=== PATIENT | male | born 1975 | race Caucasian/White ===

== ENCOUNTER → 2017-05-16 | Outpatient (CLI) | payer BC, OTHER ==
[~2017-05-16] MED LIST: ADVIL MULTI-SY1 EAC1 PO; GABAPENTIN 100100 MG PO; IBUPROFEN 800800 MG PO; MULTIVITAMINS PO; NORCO 5-325 TA1 EACH; NORCO 5-325 TA1 EACH PO; NORFLEX100 MG PO; NUCYNTA50 MG PO; ULTRAM ER200 MG PO; ZYRTEC10 M2 PO
== END ==
LOC: ULTRA 08:26
DX: E05.90 Thyrotoxicosis, unspecified without thyrotoxic crisis or storm (principal)

== ENCOUNTER → 2020-10-03 | Outpatient (CLI) | payer BC, OTHER ==
[~2020-10-03] MED LIST changes: +LEVOFLOXACIN500 MG PO; +levaquin PO
== END ==
LOC: RAD 11:31
PROVIDERS: ATTEND Internal Medicine Pulmonary Disease
DX: R91.8 Other nonspecific abnormal finding of lung field (principal); J98.4 Other disorders of lung

== ENCOUNTER → 2020-10-06 | Outpatient (CLI) | payer BC, OTHER | LOC: LAB 14:06 | PROVIDERS: ATTEND Internal Medicine Pulmonary Disease | DX: Z01.812 Encounter for preprocedural laboratory examination (principal); Z20.822 Contact with and (suspected) exposure to COVID-19 ==

== ENCOUNTER → 2020-10-09 | Outpatient (CLI) | payer BC, OTHER ==
--- NOTE | ~2020-10-09 | SLE ---
[facility] [place] [address] POLYSOMNOGRAPHY STUDY Name: STEFANY TEJADA Room #: REG [facility]#: [id number] Admission: 10/09/20 Attend Phys: Sharath Senior MD Discharge: Date of : 77 Report #: [id number] THIS REPORT FOR: cc: Ha Johnson MD FACE Ha Johnson MD FAA FACEP Segundo Turk MD ~ DATE OF SERVICE: 10/09/2020 SLEEP STUDY ATTENDING PHYSICIAN: Dr. Sharath Senior. The patient is a 44-year-old who weighs 217 pounds with a BMI of 32. The patient's [place] score was 8. The patient underwent split night study performed at [facility]. During the night study, the patient spent 463 minutes in bed and slept for 411 minutes with a sleep efficiency of 89%. Sleep latency was 4.3 minutes with a REM latency of 63 minutes. Sleep architecture showed increased stage 1 and stage 2 sleep, absent slow wave sleep and normal REM sleep. During the initial diagnostic portion of the study, the patient slept for 182 minutes. During that time, the patient had 9 obstructive apneas, no mixed apneas, no central apneas and 229 hypopneas. The patient's AHI was 78.5 per hour with a REM AHI of 65 per hour and no supine sleep was observed. EKG monitoring revealed an average heart rate of 92 beats per minute with a maximum of 107 beats per minute. No sustained arrhythmias observed. No clinically significant PLM seen. Nocturnal oximetry study revealed an average oxygen saturation of 92% with the lowest of 78%. 39 minutes were spent with oxygen saturation of less than 89%. The patient met the criteria for CPAP initiation. It was started at 5 cm water and titrated up to 15 cm water. At the final pressure, the patient slept for 120 minutes including 40 minutes of REM sleep. The patient had supine REM sleep. The patient's AHI was still 43 per hour. The patient had 50 obstructive apneas at the final pressure and 32 hypopneas. The patient's oxygen saturation remained above 90%. Optimum CPAP pressure was not achieved. IMPRESSION: 1. Severe obstructive sleep apnea at an AHI of 78.5 per hour. 2. Nocturnal hypoxia secondary to obstructive sleep apnea, but resolved with CPAP. [facility] [address] [place] [address] POLYSOMNOGRAPHY STUDY Name: STEFANY TEJADA Room #: REG [facility]#: [id number] Admission: 10/09/20 Attend Phys: Sharath Senior MD Discharge: Date of : 77 Report #: [id number] 3. No clinically significant periodic limb movements. RECOMMENDATIONS: 1. Optimum CPAP pressure was not achieved on this split night study. At the final CPAP pressure of 18 cm water, the patient's AHI was still 43 per hour. I would recommend that the patient should return to the sleep lab for a full night CPAP/BiPAP titration study starting at a CPAP pressure of 16 cm water. The patient would likely benefit from BiPAP. 2. Once the patient's sleep apnea is effectively treated with positive pressure therapy, then follow up in 4-6 weeks to assess compliance and to document clinical improvement. 3. Weight loss is advised. 4. 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 5. Cautioned regarding driving until symptoms of sleep apnea resolves with the above recommendations. By: [id number] Segundo Turk MD /nt
== END ==
LOC: SLEEPLAB 14:35
PROVIDERS: ATTEND Internal Medicine Pulmonary Disease
DX: G47.33 Obstructive sleep apnea (adult) (pediatric) (principal); R09.02 Hypoxemia

== ENCOUNTER → 2020-10-17 | Outpatient (CLI) | payer BC, OTHER | LOC: RAD 12:47 | PROVIDERS: ATTEND Internal Medicine Pulmonary Disease | DX: R91.8 Other nonspecific abnormal finding of lung field (principal) ==

== ENCOUNTER → 2020-10-20 | Outpatient (CLI) | payer BC, OTHER ==
[~2020-10-20] MED LIST changes: +BENZONATATE200 MG PO; +BUTALB-APAP-CA1 EACH PO; +ESCITALOPRAM OX20 MG PO; +PREGABALIN100 MG PO; +TRAMADOL 50 MG50 MG PO
== END ==
LOC: LAB 10-18 08:14
PROVIDERS: ATTEND Internal Medicine Pulmonary Disease
DX: Z20.822 Contact with and (suspected) exposure to COVID-19 (principal); Z01.812 Encounter for preprocedural laboratory examination

== ENCOUNTER 2020-10-22 18:31 | Inpatient (IN) | payer BC, OTHER ==
[~2020-10-22] VITALS: Ht 175.3 cm; Wt 106.2 kg
--- NOTE | ~2020-10-22 | H ---
[facility] [place] [address] HISTORY AND PHYSICAL Name: STEFANY TEJADA Room #: 212-P ADM IN M.R.#: [id number] Admission: 10/22/20 Attend Phys: Ha Johnson MD, FAAF Discharge: Date of : 77 Report #: [id number] THIS REPORT FOR: cc: Ha Johnson MD FAAFP FACEP Ha Johnson MD FAAFP FACEP Ha Johnson MD FAA FACEP ~ DATE OF SERVICE: 10/23/2020 CHIEF COMPLAINT: Pneumonia; shortness of breath. HISTORY OF PRESENT ILLNESS: The patient is a 44-year-old white male, well known to me. He was hospitalized with community-acquired pneumonia in September, stayed in the hospital most of the week. He did improve his oxygen saturations and improved well enough to go home, but did continue to have bouts of some shortness of breath with cough including productive cough. Interval chest x-ray showed some persistent infiltrates and he did continue ____ Levaquin in the interval since discharge from hospital. Over the weekend, however, his oxygen saturations dropped into the 80s and he developed worsening shortness of breath with frequent cough. He was evaluated in the Emergency Department at [facility] and was found to have bilateral pneumonias, who was admitted for broad-spectrum antibiotics. He is also noted to be hypoxic with oxygen saturation of 87, improved with oxygen per nasal cannula. PAST MEDICAL HISTORY: Kidney stones, chronic left leg pain after left hip replacement, appendectomy, cholecystectomy, herniorrhaphy. He has chronic back pain, sciatica, dumping syndrome. MEDICATIONS: Gabapentin 100 mg 1 p.o. daily, escitalopram 20 mg p.o. daily, Lyrica 100 mg p.o. b.i.d., [place] 10/325 one p.o. q.6 hours p.r.n. pain, Ultram 50 mg p.o. q.6 hours p.r.n. pain and butalbital/caffeine/acetaminophen 1 p.o. q.6 hours p.r.n. migraine. ALLERGIES: No known drug allergies. SOCIAL HISTORY: He is single, works for [employer] and [employer] and nonsmoker. Denies recreational drug use. FAMILY HISTORY: Positive for diabetes in his mother. REVIEW OF SYSTEMS: GENERAL: He has had fever and chills. No nausea, vomiting or diarrhea. EYES: No visual changes. ENT: No problems with hearing, swallow, taste or smell. CARDIOVASCULAR: No chest pain or palpitations. RESPIRATORY: He has cough and shortness of breath. [address] [address] HISTORY AND PHYSICAL Name: STEFANY TEJADA Room #: 212-P [facility] IN M.R.#: [id number] Admission: 10/22/20 Attend Phys: Ha Johnson MD, FAAF Discharge: Date of : 77 Report #: [id number] GASTROINTESTINAL: No abdominal pain. GENITOURINARY: No problems urinating. MUSCULOSKELETAL: He has chronic left leg pain and chronic back pain. NEUROLOGIC: No paresis, paralysis, or paresthesias. PSYCHIATRIC: Frustrated, not depressed. DERMATOLOGIC: No disturbing lesions or rash. Remainder of system review is negative. OBJECTIVE: VITAL SIGNS: He is febrile with a temperature of 38.5, pulse 102, respirations 20, pulse ox on room air was 87%, into the 90s with 3 liters nasal cannula oxygen, blood pressure 123/85. He is in no acute distress. Has O2 per nasal cannula. HEENT: Pupils equal, round, reactive to light and accommodation. Extraocular muscles intact, slightly exophthalmic bilaterally. Pharynx unremarkable except for mild posterior pharyngeal wall erythema. NECK: Supple. COR: S1, S2. CHEST: Scattered coarse breath sounds with fairly good air movement. ABDOMEN: Soft, nontender. EXTREMITIES: No cyanosis, clubbing or edema. NEUROLOGIC: Intact without focal deficit. X-ray show bilateral pneumonias. COVID test was negative on the day of admission. ASSESSMENT: Community-acquired pneumonia, hypoxia. PLAN: Admit to hospital. Supplemental oxygen, broad-spectrum antibiotics and ID consult to Dr. Scherer and Pulmonary Medicine consult to Dr. Sharath Senior. By: [phone] Ha Johnson MD, FAAFP, FACEP /nt
[~2020-10-22 18:31] MED LIST changes: -BENZONATATE200 MG PO; -BUTALB-APAP-CA1 EACH PO; -ESCITALOPRAM OX20 MG PO; -PREGABALIN100 MG PO; -TRAMADOL 50 MG50 MG PO
[2020-10-22 18:36] VITALS: BP 127/75
[2020-10-22] MEDS ORDERED: BENZONATATE200 MG PO (19:20)
[2020-10-22] MEDS ORDERED: TRAMADOL 50 MG50 MG PO (19:20)
[2020-10-22] MEDS ORDERED: BUTALB-APAP-CA1 EACH PO (19:21)
[2020-10-22] MEDS ORDERED: ESCITALOPRAM OX20 MG PO (19:21)
[2020-10-22] MEDS ORDERED: PREGABALIN100 MG PO (19:21)
[2020-10-22 20:05] LABS: ABSOLUTE NEUTROPHILS 9.4 thou/uL (1.4-8.2); BASOPHILS 0.7 % (0.0-2.0); EOSINOPHILS 0.9 % (0.0-3.0); HEMOGLOBIN 10.1 gm/dL (14.0-18.0); LYMPHOCYTES 7.8 % (24.0-44.0); MCH 23.8 pg (26.0-34.0); MCHC 31.7 g/dL (28.0-37.0); MCV 75.1 fL (80.0-100.0); MONOCYTES 11.8 % (1.0-8.0); PLATELET COUNT 257 thou/uL (150-400); POLYS 78.8 % (36.0-66.0); RBC 4.26 mil/uL (4.50-6.00); RDW 15.7 % (10.5-14.5); WBC 11.9 thou/uL (4.0-11.0)
[2020-10-22 20:08] LABS: BE(vivo) 1.4 mmol/L (-2 to +3); HCO3 25.9 mmol/L (22.0-26.0); PCO2 40.8 mmHg (35.0-45.0); PO2 71.1 mmHg (80.0-100.0); pH 7.421 (7.360-7.450); sO2 94.6 % (92.0-98.0)
[2020-10-22 20:08] LABS: ANION GAP 8 mmol/L (7-16); BUN 17 mg/dL (7-18); CALCIUM 8.9 mg/dL (8.5-10.1); CHLORIDE 101 mmol/L (98-107); CO2 29 mmol/L (21-32); GLUCOSE 140 mg/dL (74-106); POTASSIUM 3.9 mmol/L (3.5-5.1); SODIUM 138 mmol/L (136-145)
[2020-10-22 20:19] LABS: ALBUMIN 3.3 g/dL (3.4-5.0); SGOT 28 U/L (15-37); SGPT 49 U/L (16-63); TOTAL BILIRUBIN 0.8 mg/dL (0.2-1.0); TOTAL PROTEIN 7.8 g/dL (6.4-8.2); TROPONIN-I <0.06 ng/mL (<0.06)
--- NOTE | 2020-10-23 07:25 | EKG ---
[address] [address] ELECTROCARDIOGRAM REPORT Name: STEFANY TEJADA Room #: 170-6 ADM IN M.R.#: [id number] Admission: 10/22/20 Attend Phys: Ha Johnson MD, FAAF Discharge: Date of : 77 Report #: [id number] [facility] Test Date: 2020-10-22 Test Time: 19:11:42 Pat Name: STEFANY TEJADA Department: Room: 170 Gender: M Pelt Dropper: nicolas : 1975 Requested By: Silas Ann Order Number: [id number] MD: Sotero Mac Measurements Intervals [place] Rate: 125 P: 38 [place]: 161 QRS: -56 QRSD: 92 T: 5 QT: 310 QTc: 447 Interpretive Statements Sinus tachycardia Probable left atrial enlargement Left anterior fascicular block Compared to ECG 09/23/2020 17:41:33 Left anterior fascicular block now present Left-axis deviation no longer present ST (T wave) deviation no longer present Electronically Signed On 10-23-2020 7:25:21 CDT by Sotero Mac [email or web address] <ELECTRONICALLY SIGNED> By: Sotero Mac MD, FACC 10/23/20 0725 10 10 Sotero Mac MD, [facility] /EPI
[2020-10-23 14:17] VITALS: BP 138/83
[2020-10-23 15:09] VITALS: BP 125/78
[2020-10-23 15:30] VITALS: BP 125/74
[2020-10-23 18:30] LABS: INR 1.1; PROTIME 11.7 Seconds (9.3-11.4)
[2020-10-23 21:30] VITALS: BP 132/79
[2020-10-24] VITALS: BP 127/77
[2020-10-24 00:19] LABS: AMP/METHAMP Negative (Negative); BARBITURATES Negative (Negative); BENZODIAZEPINES Negative (Negative); COCAINE Negative (Negative); METHADONE Negative (Negative); OPIATES POSITIVE (Negative); PCP Negative (Negative)
[2020-10-24 01:06] LABS: COMPLEMENT-C3 194 mg/dL (82-167); COMPLEMENT-C4 22 mg/dL (12-38)
[2020-10-24 05:00] VITALS: BP 153/87
[2020-10-24 08:00] VITALS: BP 136/85
[2020-10-24 08:27] LABS: HEMATOCRIT 35.4 % (42.0-52.0); HEMOGLOBIN 11.3 gm/dL (14.0-18.0); MCH 23.8 pg (26.0-34.0); MCHC 31.9 g/dL (28.0-37.0); MCV 74.6 fL (80.0-100.0); RBC 4.75 mil/uL (4.50-6.00); RDW 15.9 % (10.5-14.5); WBC 5.3 thou/uL (4.0-11.0)
[2020-10-24 08:34] LABS: CALCIUM 9.4 mg/dL (8.5-10.1); CREATININE 0.8 mg/dL (0.7-1.3); POTASSIUM 3.5 mmol/L (3.5-5.1)
[2020-10-24 11:09] LABS: CLARITY CLOUDY; COLOR PINK; SOURCE BAL; TOTAL VOLUME 16 mL
[2020-10-24 12:36] LABS: BF NUCLEATED CELLS 1800 /mm3; BF RBC 10043 /mm3
[2020-10-24 14:41] LABS: BF MACROPHAGE 38 %; BF NEUTROPHILS 58 %
[2020-10-24 16:00] VITALS: BP 138/73
[2020-10-24 19:31] VITALS: BP 127/87
[2020-10-25 03:19] VITALS: BP 138/89
[2020-10-25 05:29] LABS: CALCIUM 8.3 mg/dL (8.5-10.1); CREATININE 0.9 mg/dL (0.7-1.3); POTASSIUM 3.8 mmol/L (3.5-5.1)
[2020-10-25 08:00] VITALS: BP 135/90
[2020-10-25 10:07] LABS: ANTI-DNA SCREEN 3 IU/mL (0-9); ANTI-RNP <0.2 AI (0.0-0.9); GLOMERULR BASEM MEMBRN AB 33 units (0-20)
[2020-10-25 11:45] VITALS: BP 133/74
--- NOTE | 2020-10-25 16:06 | PATH ---
[facility] [address] [place] [address] PATHOLOGY RPT PROCEDURE Name: STEFANY TEJADA Room #: 212-P ADM IN M.R.#: [id number] Admission: 10/22/20 Date of : 77 Discharge: Report #: [id number] Path Case #: [id number] Note [facility] Accession Number: [id number] TESTS RESULT FLAG UNITS REF RANGE LAB Clinician Provided Cytology Information No. of containers..01 Other (Miscellaneous) Source: BAL/WASH RUL DIAGNOSIS: 02 BAL/WASH RUL NEGATIVE FOR MALIGNANT EPITHELIAL CELLS. REACTIVE BRONCHIAL CELLS AND MACROPHAGES ARE PRESENT. PULMONARY MACROPHAGES (DUST CELLS) ARE PRESENT. Pathologist ICD10: 02 R06.02 Signed out by: 02 Giselle Morales MD, Pathologist NPI- [id number] Performed by: 01 Heather Arnold, Drill Setup Operator ([facility]) Gross description: 01 5ML, PINK, 1 TP /LCS 10/24/2020 1351 Local FLAG LEGEND: L-Low Normal,H-High Normal,LL-Alert Low,HH-Alert High <-Panic Low,>-Panic High,A-Abnormal,AA-Critical Abnormal Performed at: [address] [place] [address] Abhay Nelson MD, [address] [address] Giselle Morales MD, Performed at: [address], [place], [place] [id number] MD Abhay Nelson MD Phone: [phone]
[2020-10-25 17:00] VITALS: BP 129/94
[2020-10-25 19:47] VITALS: BP 150/94
[2020-10-26 04:03] VITALS: BP 149/99
[2020-10-26 07:35] VITALS: BP 145/80
[2020-10-26 10:00] VITALS: BP 145/80
[2020-10-26 11:30] VITALS: BP 145/84
[2020-10-26 15:45] VITALS: BP 151/83
[2020-10-26 19:42] LABS: AMP/METHAMP Negative (Negative); BARBITURATES Negative (Negative); BENZODIAZEPINES Negative (Negative); COCAINE Negative (Negative); METHADONE Negative (Negative); OPIATES POSITIVE (Negative); PCP Negative (Negative)
[2020-10-26 20:45] VITALS: BP 151/90
[2020-10-27 04:45] VITALS: BP 173/104
[2020-10-27 04:49] VITALS: BP 136/82
[2020-10-27 07:35] VITALS: BP 143/89
[2020-10-27 11:20] VITALS: BP 136/95
[2020-10-27 15:47] VITALS: BP 136/95
== END 2020-10-27 16:03 | disposition home or self-care (01) | DRG 871 ==
LOC: ER 18:31 → EROBS 21:25 → 2N 21:25
PROVIDERS: Internal Medicine Pulmonary Disease; Physician Assistant; ADMIT Family Medicine; ATTEND Family Medicine
PROC: 5A09357 Assistance with Respiratory Ventilation, Less than 24 Consecutive Hours, Continuous Positive Airway Pressure (ICD-10-PCS; principal; 2020-10-23)
PROC: 0B9C8ZX Drainage of Right Upper Lung Lobe, Via Natural or Artificial Opening Endoscopic, Diagnostic (ICD-10-PCS; 2020-10-24)
PROC: 5A09357 Assistance with Respiratory Ventilation, Less than 24 Consecutive Hours, Continuous Positive Airway Pressure (ICD-10-PCS; 2020-10-24)
PROC: 5A09357 Assistance with Respiratory Ventilation, Less than 24 Consecutive Hours, Continuous Positive Airway Pressure (ICD-10-PCS; 2020-10-25)
DX: A41.9 Sepsis, unspecified organism (principal); J96.01 Acute respiratory failure with hypoxia; J18.1 Lobar pneumonia, unspecified organism; R04.2 Hemoptysis; D80.3 Selective deficiency of immunoglobulin G [IgG] subclasses; R65.20 Severe sepsis without septic shock; K21.9 Gastro-esophageal reflux disease without esophagitis; F41.9 Anxiety disorder, unspecified; G89.29 Other chronic pain; M54.9 Dorsalgia, unspecified; J39.8 Other specified diseases of upper respiratory tract; G47.33 Obstructive sleep apnea (adult) (pediatric); I10 Essential (primary) hypertension; R91.8 Other nonspecific abnormal finding of lung field; Z96.642 Presence of left artificial hip joint; Z88.5 Allergy status to narcotic agent; Z87.442 Personal history of urinary calculi; Z90.49 Acquired absence of other specified parts of digestive tract; Z20.822 Contact with and (suspected) exposure to COVID-19
CPT/HCPCS: 10081; 50010; 62110; 62900; 70005

== ENCOUNTER → 2020-11-13 | Outpatient (CLI) | payer BC, OTHER ==
[~2020-11-13] MED LIST changes: +BENZONATATE200 MG PO; +BUTALB-APAP-CA1 EACH PO; +ESCITALOPRAM OX20 MG PO; +PREGABALIN100 MG PO; +TRAMADOL 50 MG50 MG PO
== END ==
LOC: RAD 08:20
PROVIDERS: ATTEND Internal Medicine
DX: R06.00 Dyspnea, unspecified (principal)

== ENCOUNTER → 2020-11-13 | Outpatient (CLI) | payer BC, OTHER ==
--- NOTE | 2020-11-16 14:17 | SLE ---
[facility] [place] [address] POLYSOMNOGRAPHY STUDY Name: STEFANY TEJADA Room #: REG [facility]#: [id number] Admission: 11/13/20 Attend Phys: Segundo Turk MD Discharge: Date of : 77 Report #: [id number] THIS REPORT FOR: cc: Ha Johnson MD, FAAFP FACEP Ha Johnson MD, FAAFP, FACEP, Aman U. MD ~ DATE OF SERVICE: 11/13/2020 SLEEP STUDY ATTENDING PHYSICIAN: Dr. Sharath Senior. The patient is 44 years old who weighs 220 pounds with a BMI of 32.5. The patient had a previous sleep study and was found to have severe ARISTIDES with an AHI of 78.5 per hour. The patient also had nocturnal hypoxia. Optimum CPAP pressure was not achieved on the split night study. The patient was recommended to return for a full night of CPAP/BiPAP titration study. During the night study, the patient spent 437 minutes in bed and slept for 400 minutes with a sleep efficiency of 91%. Sleep latency was 41 minutes with a REM latency of 63 minutes. Sleep architecture showed normal stage 1 sleep, increased N2 sleep, normal N3 sleep and normal REM sleep. EKG monitoring revealed an average heart rate of 84 beats per minute. No sustained arrhythmias observed. PLMS were seen at an index of 5 per hour and only 0.5 per hour caused EEG arousals. The patient was started on BiPAP at a pressure of 8/4 and titrated up to 17/13. At the final pressure, the patient slept for 61 minutes including 15.5 minutes of supine REM sleep. The patient's AHI was reduced to only 2 per hour and oxygen saturations remained above 93%. IMPRESSION: 1. Severe obstructive sleep apnea diagnosed by previous sleep study. 2. No clinically significant periodic limb movements of sleep. 3. Nocturnal hypoxia secondary to obstructive sleep apnea, but resolved with BiPAP. RECOMMENDATIONS: 1. BiPAP at a pressure of 17/13 completely eliminated the patient's sleep apnea and should be used on a nightly basis. 2. Follow up in 4-6 weeks to assess compliance with BiPAP and to document clinical improvement. [facility] [address] [place] [address] POLYSOMNOGRAPHY STUDY Name: STEFANY TEJADA Room #: REG [facility]#: [id number] Admission: 11/13/20 Attend Phys: Segundo Turk MD Discharge: Date of : 77 Report #: [id number] 3. Weight loss is advised. 4. 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 5. Cautioned regarding driving until symptoms of sleep apnea resolve with the use of BiPAP. <ELECTRONICALLY SIGNED> By: Segundo Turk MD 11/16/20 1417 0804 0810 Segundo Turk MD /nt
== END ==
LOC: SLEEPLAB → EDSTATUS 08:11 → SLEEPLAB 08:21
PROVIDERS: ATTEND Internal Medicine Critical Care Medicine
DX: G47.33 Obstructive sleep apnea (adult) (pediatric) (principal); G47.34 Idiopathic sleep related nonobstructive alveolar hypoventilation

== ENCOUNTER → 2020-11-13 | Outpatient (CLI) | payer BC, OTHER | LOC: LAB 07:58 | PROVIDERS: ATTEND Internal Medicine Pulmonary Disease | DX: Z01.812 Encounter for preprocedural laboratory examination (principal); Z20.822 Contact with and (suspected) exposure to COVID-19 ==

== ENCOUNTER → 2021-01-24 | Outpatient (CLI) | payer BC, OTHER | LOC: CAT 01-22 11:33 → RAD 10:25 → CAT 10:25 | PROVIDERS: ATTEND Internal Medicine | DX: R91.8 Other nonspecific abnormal finding of lung field (principal); J98.4 Other disorders of lung ==

== ENCOUNTER 2021-02-21 07:40 | Emergency (ER) | payer BC, OTHER ==
[~2021-02-21] VITALS: Ht 175.3 cm; Wt 95.3 kg
[2021-02-21 08:21] LABS: BASOPHILS 0.5 % (0.0-2.0); EOSINOPHILS 0.7 % (0.0-3.0); HEMATOCRIT 39.5 % (42.0-52.0); HEMOGLOBIN 12.7 gm/dL (14.0-18.0); LYMPHOCYTES 15.1 % (24.0-44.0); MCH 22.6 pg (26.0-34.0); MCHC 32.2 g/dL (28.0-37.0); MCV 70.1 fL (80.0-100.0); MONOCYTES 5.9 % (1.0-8.0); PLATELET COUNT 276 thou/uL (150-400); POLYS 77.8 % (36.0-66.0); RBC 5.64 mil/uL (4.50-6.00); RDW 16.7 % (10.5-14.5); WBC 7.7 thou/uL (4.0-11.0)
[2021-02-21 08:32] LABS: ANION GAP 13 mmol/L (7-16); BUN 10 mg/dL (7-18); CALCIUM 9.5 mg/dL (8.5-10.1); CHLORIDE 103 mmol/L (98-107); CO2 24 mmol/L (21-32); CREATININE 0.9 mg/dL (0.7-1.3); GLUCOSE 133 mg/dL (74-106); POTASSIUM 4.1 mmol/L (3.5-5.1); SODIUM 140 mmol/L (136-145)
[2021-02-21] MEDS ORDERED: PREDNISONE 10 M10 MG PO (08:32)
[2021-02-21] MEDS ORDERED: PROAIR HFA8.5 GM INH (08:32)
[2021-02-21 08:42] LABS: ALBUMIN 3.6 g/dL (3.4-5.0); MAGNESIUM 1.8 mg/dL (1.8-2.4); SGOT 17 U/L (15-37); SGPT 20 U/L (16-63); TOTAL BILIRUBIN 0.5 mg/dL (0.2-1.0); TOTAL PROTEIN 7.7 g/dL (6.4-8.2); TROPONIN-I <0.06 ng/mL (<0.06)
--- NOTE | 2021-02-21 09:45 | EKG ---
[place] [address] [place] [address] ELECTROCARDIOGRAM REPORT Name: STEFANY TEJADA Room #: REG [facility]#: [id number] Admission: 02/21/21 Attend Phys: Discharge: Date of : 77 Report #: [id number] [facility] ED Test Date: 2021-02-21 Test Time: 07:58:48 Pat Name: STEFANY TEJADA Department: Room: Gender: M Director Of Hemophilia: JEN : 1975 Requested By: Lizandro Holman Order Number: [id number] MD: Sotero Mac Measurements Intervals [place] Rate: 85 P: 54 ND: 154 QRS: -39 QRSD: 103 T: 8 QT: 382 QTc: 455 Interpretive Statements Sinus rhythm Probable left atrial enlargement Left axis deviation Compared to ECG 10/22/2020 19:11:42 Left-axis deviation now present Sinus tachycardia no longer present Left anterior fascicular block no longer present Electronically Signed On 02-21-2021 9:44:56 CDT by Sotero Mac [email or web address] <ELECTRONICALLY SIGNED> By: Sotero Mac MD, [facility] 02/21/21 0944 0758 0758 Sotero Mac MD, FACC /EPI
[2021-02-21] MEDS ORDERED: TESSALON PERLE100 MG PO (12:15)
[2021-02-21 12:17] VITALS: BP 145/101
== END 2021-02-21 12:24 | disposition home or self-care (01) ==
LOC: ER 07:40
PROVIDERS: Emergency Medicine
DX: J06.9 Acute upper respiratory infection, unspecified (principal); Z20.822 Contact with and (suspected) exposure to COVID-19; K21.9 Gastro-esophageal reflux disease without esophagitis; I10 Essential (primary) hypertension; Z90.89 Acquired absence of other organs; Z98.890 Other specified postprocedural states; Z88.5 Allergy status to narcotic agent

== ENCOUNTER → 2021-04-16 | Outpatient (CLI) | payer BC, OTHER ==
[~2021-04-16] MED LIST changes: +PREDNISONE 10 M10 MG PO; +PROAIR HFA8.5 GM INH; +TESSALON PERLE100 MG PO
== END ==
LOC: RAD 07:01
PROVIDERS: ATTEND Internal Medicine
DX: J98.4 Other disorders of lung (principal)

== ENCOUNTER 2021-05-19 12:23 | Inpatient (IN) | payer BC, OTHER ==
[~2021-05-19] VITALS: Ht 175.3 cm; Wt 109.3 kg
[2021-05-19 12:34] VITALS: BP 125/64
[2021-05-19 12:55] LABS: ABSOLUTE NEUTROPHILS 9.5 thou/uL (1.4-8.2); BASOPHILS 0.5 % (0.0-2.0); EOSINOPHILS 0.9 % (0.0-3.0); HEMOGLOBIN 11.1 gm/dL (14.0-18.0); LYMPHOCYTES 8.4 % (24.0-44.0); MCH 22.8 pg (26.0-34.0); MCHC 31.7 g/dL (28.0-37.0); MONOCYTES 6.1 % (1.0-8.0); PLATELET COUNT 276 thou/uL (150-400); POLYS 84.1 % (36.0-66.0); RBC 4.86 mil/uL (4.50-6.00); RDW 16.6 % (10.5-14.5); WBC 11.3 thou/uL (4.0-11.0)
[2021-05-19 13:10] LABS: CALCIUM 9.1 mg/dL (8.5-10.1); CREATININE 1.3 mg/dL (0.7-1.3); POTASSIUM 3.7 mmol/L (3.5-5.1)
[2021-05-19 13:18] VITALS: BP 125/64
[2021-05-19 13:49] LABS: ANISOCYTOSIS 2+; MACROCYTES FEW; MICROCYTES 1+; OVALOCYTES OCCASIONAL; POLYCHROMASIA OCCASIONAL
[2021-05-19 13:53] LABS: ALBUMIN 3.3 g/dL (3.4-5.0); DIRECT BILIRUBIN < 0.1 mg/dL (<0.1-0.2); SGOT 42 U/L (15-37); SGPT 29 U/L (16-63); TOTAL BILIRUBIN 0.7 mg/dL (0.2-1.0); TOTAL PROTEIN 6.9 g/dL (6.4-8.2)
[2021-05-19 15:33] LABS: HCO3 26.4 mmol/L (22.0-26.0); PCO2 40.6 mmHg (35.0-45.0); pH 7.431 (7.360-7.450); sO2 84.7 % (92.0-98.0)
[2021-05-19 15:34] LABS: PO2 47.7 mmHg (80.0-100.0)
[2021-05-19 17:31] VITALS: BP 127/72
[2021-05-19] MEDS ORDERED: OMEPRAZOLE 20 M20 M1 PO (18:40)
--- NOTE | 2021-05-19 19:01 | NUR ---
PT ARRIVED TO ROOM 350 VIA WHEELCHAIR. PT PLACED IN ENHANCED PRECAUTIONS DUE TO RULE OUT COVID-19. PT CURRENTLY ST ON THE MONITOR AND 6LNC. RR IS 24. PT DOES GET WINDED WHEN UP. NO WOUNDS. IV IN RIGHT ARM DISCONTINUED IT WOULD NOT FLUSH. IV FLUIDS RUNNING IN LEFT AC IV. PULMONOLOGY SAW PT IN ED. NO COMPLAINTS OF PAIN OR DISCOMFORT AT THIS TIME. CALL LIGHT WITHIN REACH. WILL CONTINUE TO MONITOR.
[2021-05-19 19:14] VITALS: BP 144/77
[2021-05-19 22:39] LABS: ABSOLUTE NEUTROPHILS 6.3 thou/uL (1.4-8.2); BASOPHILS 0.2 % (0.0-2.0); EOSINOPHILS 0.1 % (0.0-3.0); HEMATOCRIT 33.7 % (42.0-52.0); HEMOGLOBIN 10.4 gm/dL (14.0-18.0); LYMPHOCYTES 6.8 % (24.0-44.0); MCH 22.6 pg (26.0-34.0); MCHC 30.8 g/dL (28.0-37.0); MCV 73.4 fL (80.0-100.0); MONOCYTES 2.9 % (1.0-8.0); PLATELET COUNT 259 thou/uL (150-400); RDW 16.6 % (10.5-14.5)
[2021-05-19 23:03] LABS: CALCIUM 8.7 mg/dL (8.5-10.1); CREATININE 1.4 mg/dL (0.7-1.3); POTASSIUM 4.2 mmol/L (3.5-5.1)
[2021-05-19 23:57] VITALS: BP 141/79
[2021-05-20 03:57] VITALS: BP 120/68
[2021-05-20 04:06] LABS: ALBUMIN 2.8 g/dL (3.4-5.0); CREATININE 1.1 mg/dL (0.7-1.3); MAGNESIUM 2.1 mg/dL (1.8-2.4); PHOSPHORUS 1.1 mg/dL (2.5-4.9); POTASSIUM 4.4 mmol/L (3.5-5.1); TOTAL BILIRUBIN 0.4 mg/dL (0.2-1.0); TOTAL PROTEIN 6.8 g/dL (6.4-8.2)
[2021-05-20 04:43] LABS: ABSOLUTE NEUTROPHILS 5.2 thou/uL (1.4-8.2); BASOPHILS 0.2 % (0.0-2.0); HEMATOCRIT 32.7 % (42.0-52.0); HEMOGLOBIN 10.5 gm/dL (14.0-18.0); LYMPHOCYTES 9.9 % (24.0-44.0); MCH 23.3 pg (26.0-34.0); MCV 72.8 fL (80.0-100.0); MONOCYTES 3.4 % (1.0-8.0); PLATELET COUNT 265 thou/uL (150-400); POLYS 86.5 % (36.0-66.0); RDW 16.4 % (10.5-14.5)
--- NOTE | 2021-05-20 04:58 | NUR ---
RECEIVED CARE OF THISA PATIENT AT 1900. PATIENT ALERT AND ORIENTED X4. UP AD RUCHI. O2 AT 6L/NC. ACCUCHECK WAS 237, 4 UNITS LISPRO INSULIN GIVEN. C/O VOMITED SM AMOUNT YELLOW LIQUID. C/O PAIN, MED GIVEN. SLEPT MOST OF NIGHT.
[2021-05-20 07:27] VITALS: BP 122/66
[2021-05-20 11:25] VITALS: BP 135/77
[2021-05-20 16:19] VITALS: BP 140/81
[2021-05-20 19:11] VITALS: BP 151/85
--- NOTE | 2021-05-20 19:46 | NUR ---
RN ASSUMED PT'S CARE AT 0700-1900PM, PT IS ON O2 4-5L/MIN/NC, PT STILL HAS COUGHING AND SOB WITH ACTIVITIES, PT IS CONTINUING IV ABX, AND PAIN MANAGEMENT.PT IS A&OX4.
[2021-05-21 01:06] LABS: HIV ANTIBODY Non Reactive (Non Reactive)
[2021-05-21 04:38] VITALS: BP 135/77
--- NOTE | 2021-05-21 05:20 | NUR ---
PT PROGRESSING SLOWLY TOWARDS D/C GOALS. VSS AFEBRILE SATS WNL ON 2LNC. MEDICATED FOR L HIP PAIN X3 TONIGHT WITH ADEQUATE RELEIF OBTAINED. PT SLEPT MOST OF THE NIGHT.
[2021-05-21 05:35] LABS: HEMATOCRIT 32.2 % (42.0-52.0); HEMOGLOBIN 10.5 gm/dL (14.0-18.0); MCH 23.4 pg (26.0-34.0); MCHC 32.5 g/dL (28.0-37.0); MCV 72.1 fL (80.0-100.0); RBC 4.47 mil/uL (4.50-6.00); RDW 16.6 % (10.5-14.5); WBC 9.3 thou/uL (4.0-11.0)
[2021-05-21 05:54] LABS: ALBUMIN 2.6 g/dL (3.4-5.0); CALCIUM 8.4 mg/dL (8.5-10.1); CREATININE 0.8 mg/dL (0.7-1.3); PHOSPHORUS 3.1 mg/dL (2.5-4.9); POTASSIUM 3.7 mmol/L (3.5-5.1)
[2021-05-21 06:55] VITALS: BP 147/97
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
--- NOTE | 2021-05-21 07:30 | EKG ---
[address] [address] ELECTROCARDIOGRAM REPORT Name: STEFANY TEJADA Room #: 350-P ADM IN M.R.#: [id number] Admission: 05/19/21 Attend Phys: Ha Johnson MD, FAAF Discharge: Date of : 77 Report #: [id number] [facility] ED Test Date: 2021-05-19 Test Time: 13:00:26 Pat Name: STEFANY TEJADA Department: Room: 350 Gender: M Hot Knife Cutter: Dmitry Bradford : 1975 Requested By: Juanpablo Dallas Order Number: [id number] MD: Sotero Mac Measurements Intervals [place] Rate: 132 P: 61 [place]: 145 QRS: -67 QRSD: 96 T: 4 QT: 295 QTc: 437 Interpretive Statements Sinus tachycardia Probable left atrial enlargement Abnormal R-wave progression, early transition Baseline wander in lead(s) V1 Compared to ECG 02/21/2021 07:58:48 Sinus rhythm no longer present Left-axis deviation no longer present Electronically Signed On 05-21-2021 7:30:00 CDT by Sotero Mac [email or web address] <ELECTRONICALLY SIGNED> By: Sotero Mac MD, FACC 05/21/21 0730 1300 1300 Sotero Mac MD, FACC /EPI
--- NOTE | 2021-05-21 07:32 | EKG ---
[address] [employer] [place] [address] ELECTROCARDIOGRAM REPORT Name: STEFANY TEJADA Room #: 350-P ADM IN M.R.#: [id number] Admission: 05/19/21 Attend Phys: Ha Johnson MD, [facility] Discharge: Date of : 77 Report #: [id number] [facility] Test Date: 2021-05-20 Test Time: 09:03:27 Pat Name: STEFANY TEJADA Department: Room: 350 P Gender: M Web Master: ALEJANDRINA : 1975 Requested By: Ha Johnson Order Number: [id number] MD: Sotero Mac Measurements Intervals [place] Rate: 99 P: 59 OR: 158 QRS: -41 QRSD: 105 T: 8 QT: 370 QTc: 475 Interpretive Statements Sinus rhythm Probable left atrial enlargement Left axis deviation Compared to ECG 05/19/2021 13:00:26 Left-axis deviation now present Sinus tachycardia no longer present Left anterior fascicular block no longer present Electronically Signed On 05-21-2021 7:32:11 CDT by Sotero Mac [email or web address] <ELECTRONICALLY SIGNED> By: Sotero Mac MD, FACC 05/21/21 0732 2 2 Sotero Mac MD, FAC /EPI
--- NOTE | 2021-05-21 07:55 | NUR ---
PT'S COVID TEST ( PCR) WAS NEGATIVE, PT DID NOT NEED COVID ISOLATION PER ID DR MIGUEL. SO PT WAS OFF ISOLATION AT YESTODAY.
[2021-05-21 11:02] VITALS: BP 148/86
[2021-05-21 14:57] VITALS: BP 139/91
--- NOTE | 2021-05-21 15:47 | NUR ---
INITIAL ASSESSMENT: SW reviewed chart and spoke with nursing. Pt was admitted from home due to pneumonia/sepsis. Pt had negative COVID test and is no longer in Enhanced Isolation. Pt has received one dose of the Pfizer vaccine. Pt is currently on 2L of O2, IV abx and IV steroids. SW spoke with pt via phone. Introduced role of SW. Pt is alert/orientated x 4. Pt reports he lives at home. Prior to admission, pt was independent with ADLs. No use of DME for ambulation. Pt has a nebulizer and bipap machine at home, which has been supplied by [employer]. No hx of services or post-acute placement. Pt's PCP is Dr. Deven Johnson. Pt to have a bronch tomorrow. Plan is for pt to discharge home when medically stable. SW is following to assist as needed with discharge planning.
[2021-05-21 19:23] VITALS: BP 142/89
--- NOTE | 2021-05-21 22:10 | NUR ---
PT ALERT AND ORIENTED X4. VSS. SAT 99% ON RA. LUNGS DIMINISHED. UNLABORED IN BED AT REST. PT MPO AFTER MN FOR TESTS IN AM. LEFT HIP PAIN UNDER CONTROL PRESENTLY BUT WILL GIVE PAIN PILL LATER WHEN ITS TIME.
[2021-05-22] VITALS (10 sets, daily range): BP systolic 133–155; BP diastolic 65–108
--- NOTE | 2021-05-22 06:01 | NUR ---
PT HAS BEEN NPO AFTER MN FOR EGD AND BRONCHOSCOPY. VSS AFEBRILE. SATS WNL ON RA. NO C/O PAIN FOR SEVERAL HOURS.
[2021-05-22 06:41] LABS: % SATURATION 4 % (20-39); IRON 14 ug/dL (65-175); TIBC 344 ug/dL (250-450)
--- NOTE | 2021-05-22 08:46 | NUR ---
0830 ALERT AND ORIENTED X4, DENIES ANY CHEST PAIN. COMPLAINS OF LEFT HIP PAIN, PT NPO FOR BRONCH SO UNABLE TO GIVEN PAIN MED. ON ROOM AIR, NO SIGNS OF DISTRESS. PT USES BSC AND URINAL. 0830 PT TAKEN DOWN FOR BRONCH
[2021-05-22 10:07] LABS: ANA INTERPRETATION Negative (Negative)
--- NOTE | 2021-05-22 13:48 | NUR ---
SW reviewed chart and spoke with nursing. Pt to have bronch and EGD today. Pt is on IV abx and IV steroids. Plan is for pt to discharge home when medically stable. JUANITA is following to assist as needed with discharge planning.
--- NOTE | 2021-05-22 21:31 | NUR ---
PT RESTING IN BED WATCHING TV. O2 PER NC. LUNGS COARSE. GENERALIZED EDEMA, PT OBESE. IVF INTACT. PT VERBALIZED UNDERSTANDING OF NPO P MN FOR EGD IN AM. PT REQUESTING LYRICA AND PAIN MED PRIOR TO MN. PT VERBALIZED UNDERSTANDING OF TRANSFER TO 2N ROOM NEEDED FOR COVID PT. PT CALLS FOR ASSISTANCE.
--- NOTE | 2021-05-22 22:00 | NUR ---
REPORT CALLED TO 2N TRANSFER TO ROOM 201.
--- NOTE | 2021-05-23 02:42 | NUR ---
PT TRANSFERRED TO THE UNIT AT APPROXIMATELY 2230. PT IS A/O X4 AND IS UP WITH SBA TO THE BR. ROOM AIR. VSS. AFEBRILE. C/O PAIN. PRN PAIN MEDICATION GIVEN PER MAR. MAINTANCE FLUID INFUSING AT PRESCRIBED RATE. 2100 MEDICATION GIVEN AT 0000 AT THE REQUEST OF THE PT. CURRENTLY PT IS ON HIS CPAP MACHINE AND APPEARS TO BE SLEEPING WITH EYES CLOSED. FALL PRECAUTIONS IN PLACE, CALL LIGHT IS WITHIN REACH. WILL CONTINUE TO MONITOR.
[2021-05-23 03:50] VITALS: BP 150/113
[2021-05-23 07:36] VITALS: BP 157/105
--- NOTE | 2021-05-23 09:53 | NUR ---
ASSUMED CARE OF PT AT 0700. PT IS RETSTING IN BED AT TIME OF ASSESSMENT AND MEDICATION ADMINISTRATION. PT IS NPO AFTER MIDNIGHT ON 05/23 FOR EGD TO BE PREFORMED THIS AFTERNOON. INSULIN HELD FOR THIS REASON. PT STATES HE IS GRUMPY AND NEROVOUS ABOUT PROCEEDURE. DR BRUCE PAGED TO GET AN ORDER FOR IV PAIN MEDICATION/ ANXIETY MEDICATION. PT IS RESTING IN BED AT THIS TIME. WILL CONTINUE TO MONITOR.
[2021-05-23 11:06] VITALS: BP 154/107
--- NOTE | 2021-05-23 15:01 | NUR ---
PT RETURNED FOROM EGD PROCEEDURE. PTS VS OBTAINED AND ARE STABLE. PTS TELE MONITOR IS APPLIED. PT IS OFFERED CLEAR LIQUIDS FOR NOW. ADVANCE DIET TOLERATED. PT IS RESTING IN BED AT THIS TIME. WILLC CONTINUE TO MONITOR.
[2021-05-23 15:09] VITALS: BP 152/112
[2021-05-23 15:31] VITALS: BP 152/112
[2021-05-23 20:45] VITALS: BP 139/71
--- NOTE | 2021-05-23 23:09 | NUR ---
ASSUMED PT CARE AT AROUND 1915 HRS. PT IS ALERT AND ORIENTED, ROOM AIR, NO DISTRESS. IVF INFUSING, C/O SOME HEADACHE, ASKING FOR PRN PAIN MEDS. AFEBRILE. NON PRODUCTIVE COUGH, USING URINAL, ABTS SWITCHED TO ORAL,PLAN FOR D/C TOMORROW.
[2021-05-24 03:42] LABS: HEMATOCRIT 34.9 % (42.0-52.0); MCH 22.6 pg (26.0-34.0); MCHC 31.4 g/dL (28.0-37.0); PLATELET COUNT 307 thou/uL (150-400); RBC 4.85 mil/uL (4.50-6.00); RDW 16.8 % (10.5-14.5); WBC 9.4 thou/uL (4.0-11.0)
[2021-05-24 04:45] VITALS: BP 145/93
[2021-05-24 05:41] LABS: CREATININE 0.8 mg/dL (0.7-1.3); POTASSIUM 3.8 mmol/L (3.5-5.1)
[2021-05-24 07:43] VITALS: BP 132/86
[2021-05-24 11:38] VITALS: BP 147/93
[2021-05-24 13:08] LABS: ABSOLUTE NEUTROPHILS 8.1 thou/uL (1.4-8.2); METAMYELOCYTES 1 %
[2021-05-24 13:12] LABS: ANISOCYTOSIS 1+; HYPOCHROMASIA 1+; MICROCYTES 1+
[2021-05-24 15:15] VITALS: BP 132/93
--- NOTE | 2021-05-24 15:24 | NUR ---
TOOK OVER CARE FOR THIS PATIENT AT 0700. PATIENT RESTING IN BED COMFORTABLY. PATIENT DENIES ANY NEEDS AT THIS TIME; GAVE PATIENT PRN PAIN MEDICATION FOR CHRONIC BACK PAIN. PT ALERT AND ORIENTATED. NO ACUTE DISTRESS NOTED. PATIENT TAKEN FOR CHEST XRAY THIS MORNING.
[2021-05-24 16:38] VITALS: BP 132/93
--- NOTE | 2021-05-24 16:57 | NUR ---
Case discussed with the care team. Pt is on roomair and up ad tadeo in his room. Bx are pending but likely dc home soon on po atb. Pt was working and indep prior to admission. Outpt followup anticipated. Will follow along should dc needs arise.
[2021-05-24] MEDS ORDERED: AMOX TR-K CLV1 EAC4 PO (17:19)
[2021-05-24] MEDS ORDERED: IPRAT-ALBUT 0.5-3 ML INH (17:20)
--- NOTE | 2021-05-24 17:55 | NUR ---
DISCHARGE EDUCATION PROVIDED TO PATIENT. PATIENT AGREES TO DISCHARGE PLAN AND FOLLOW UP APPOINTMENTS. PATIENT PICKING UP PRESCIPTIONS FROM OUTPATIENT PHARMACY. PATIENT DENIES ANY QUESTIONS OR CONCERNS WITH DISCHARGE PLAN.
[2021-05-24 18:06] LABS: ANTI-VCA/IgM <36.0 U/mL (0.0-35.9)
--- NOTE | 2021-05-25 12:07 | PATH ---
[facility] [address] [place] [address] PATHOLOGY RPT PROCEDURE Name: KARL TEJADA Room #: 201-P DIS IN M.R.#: [id number] Admission: 05/19/21 Date of : 77 Discharge: 05/24/21 Report #: [id number] Path Case #: [id number] [facility] Accession Number: [id number] . 01 Material submitted: . lung - RANDOM TISSUE BIOPSY SAMPLES RESP/BROCH BRUSH . 01 Clinical history: . PNA, SEVERE SEPSIS, COVID PUI . 02 Diagnosis: Lung, random bronchial, biopsy: - Two fragments comprised of abundant macrophages and chronic inflammation compatible with reparative changes, see comment. - Remainder fragments showing benign alveolated lung parenchyma as well as bronchial tissue fragments along with cartilage and mild chronic inflammation. - Negative for vasculitis, granulomata or viral inclusions. - Negative for dysplasia or malignancy. LBQ 05/25/2021 1136 Local . 02 Comment: Two fragments comprised of exuberant histiocytic proliferation, as well as mild chronic inflammation are identified in addition to "fat vacuoles". Fibroblastic foci are not identified. Properly controlled AE1/AE3 immunohistochemical stain performed on block A1 shows no reactivity within these cells. Properly controlled CD68 immunohistochemical stain performed on block A1 shows reactivity within most of the cells examined. . Acid fast bacillus and Gomori methenamine silver stains performed on A1 are negative for mycobacterial as well as fungal elements, respectively. . Based on the morphology, the immunohistochemical stains as well as the special stains, findings are suggestive of reparative changes. History of severe sepsis is noted. There is no definitive dysplasia or malignancy present within the current sections examined. (IUV/db; 05/24/2021) . 02 Electronically signed: . Giselle Morales MD, Pathologist NPI- [id number] . 01 Gross description: . The specimen is received in formalin, labeled "Karl Tejada, biopsy". The source is additionally listed on the requisition as "resp/bronch brush". Received are multiple segments of pale salas tissue ranging in size from 0.3 to 0.4 cm in maximum dimensions. [place] [address] PATHOLOGY RPT PROCEDURE Name: KARL TEJADA LE[place] Room #: 201-P DIS IN M.R.#: [id number] Admission: 05/19/21 Date of : 77 Discharge: 05/24/21 Report #: [id number] Path Case #: [id number] entirely in cassette A1.([facility]; 05/23/2021) [facility] 05/23/2021 1101 Local . 02 Pathologist provided ICD-10: J98.4, J42 . 02 CPT . 912233, D32942, P52032, 905852, 122821 Specimen Comment: A courtesy copy of this report has been sent to [phone] Specimen Comment: Report sent to Performed at: [address] [facility], [place] [id number] MD Abhay Nelson MD Phone: [phone] Performed at: [address] [id number] MD Giselle Morales MD Phone: [phone]
--- NOTE | 2021-05-25 17:06 | PATH ---
[facility] [address] [address] PATHOLOGY RPT PROCEDURE Name: KARL TEJADA Room #: 201-P DIS IN M.R.#: [id number] Admission: 05/19/21 Date of : 77 Discharge: 05/24/21 Report #: [id number] Path Case #: [id number] [facility] Accession Number: [id number] . 01 Material submitted: . PART A: duodenum - DUODENUM BIOPSY- R/O CELIAC PART B: esophagus - DISTAL ESOPHAGUS BIOPSY- R/O HERNANDEZ'S. Modifiers: distal PART C: esophagus - PROXIMAL ESOPHAGUS BIOPSY- R/O EOE. Modifiers: proximal . 01 Clinical history: . ESOPHAGOGASTRODUODENOSCOPY NAUSEA, GERD HIATAL HERNIA . 02 Diagnosis: A. Small bowel mucosa, duodenum R/O celiac, endoscopic biopsy: - No diagnostic abnormalities. - Negative for villous blunting and increase in intraepithelial lymphocytes. . B. Gastroesophageal mucosa, distal esophagus R/O Hernandez's, endoscopic biopsy: - Gastric fundic-type mucosa with moderate chronic inflammation. - Squamous mucosa with mild active esophagitis. - Negative for intestinal metaplasia (Hernandez's metaplasia) or dysplasia. . C. Squamous mucosa, proximal esophagus R/O EOE, endoscopic biopsy: - Mild esophagitis. - No increase in intraepithelial eosinophils. (IUV:guido; 05/25/2021) QMS 05/25/2021 1354 Local . 02 Electronically signed: . Giselle Morales MD, Pathologist NPI- [id number] . 01 Gross description: . A. The specimen is received in formalin, labeled "Karl Tejada, duodenum biopsy". Received are three segments of pale salas tissue ranging in size from 0.4-0.5 cm in maximum dimensions. The specimen is submitted entirely in cassette A1. . B. The specimen is received in formalin, labeled "Karl Tejada, distal esophagus biopsy". Received are three segments of pale salas tissue ranging in size from 0.3-0.5 cm in maximum dimensions. The specimen is submitted entirely in cassette B1. [address] [address] PATHOLOGY RPT PROCEDURE Name: KARL TEJADA Room #: 201-P DIS IN M.R.#: [id number] Admission: 05/19/21 Date of : 77 Discharge: 05/24/21 Report #: [id number] Path Case #: [id number] . C. The specimen is received in formalin, labeled "Karl Tejada, proximal esophagus biopsy". Received are two segments of pale salas tissue measuring 0.3 cm each in maximum dimensions. The specimen is submitted entirely in cassette C1. ([facility]; 05/24/2021) QAC/QAC 05/24/2021 1317 Local . 02 Pathologist provided ICD-10: K20.90, K29.50 . 02 CPT . 411432, 871237, 991539 Specimen Comment: A courtesy copy of this report has been sent to [phone] Specimen Comment: [phone] Specimen Comment: Report sent to / DR BRUCE Performed at: [address], [place] [id number] MD Abhay Nelson MD Phone: [phone] Performed at: [address] [id number] MD Giselle Morales MD Phone: [phone]
== END 2021-05-24 18:33 | disposition home or self-care (01) | DRG 853 ==
LOC: ER 12:23 → 3W 16:34 → 2N 16:34 → EROBS 16:34 → 3W 17:31 → 2N 05-22 22:26
PROVIDERS: Internal Medicine; Internal Medicine Pulmonary Disease; Nurse Practitioner; Pediatrics; Student in an Organized Health Care Education/Training Program; ADMIT Family Medicine; ATTEND Family Medicine
PROC: 5A09357 Assistance with Respiratory Ventilation, Less than 24 Consecutive Hours, Continuous Positive Airway Pressure (ICD-10-PCS; principal; 2021-05-21)
PROC: 0BDC8ZX Extraction of Right Upper Lung Lobe, Via Natural or Artificial Opening Endoscopic, Diagnostic (ICD-10-PCS; 2021-05-22)
PROC: 5A09357 Assistance with Respiratory Ventilation, Less than 24 Consecutive Hours, Continuous Positive Airway Pressure (ICD-10-PCS; 2021-05-22)
PROC: 0BBM8ZX Excision of Bilateral Lungs, Via Natural or Artificial Opening Endoscopic, Diagnostic (ICD-10-PCS; 2021-05-22)
PROC: 0BDG8ZX Extraction of Left Upper Lung Lobe, Via Natural or Artificial Opening Endoscopic, Diagnostic (ICD-10-PCS; 2021-05-22)
PROC: 0B9C8ZX Drainage of Right Upper Lung Lobe, Via Natural or Artificial Opening Endoscopic, Diagnostic (ICD-10-PCS; 2021-05-22)
PROC: 0DB38ZX Excision of Lower Esophagus, Via Natural or Artificial Opening Endoscopic, Diagnostic (ICD-10-PCS; 2021-05-23)
PROC: 5A09457 Assistance with Respiratory Ventilation, 24-96 Consecutive Hours, Continuous Positive Airway Pressure (ICD-10-PCS; 2021-05-23)
PROC: 0DB18ZX Excision of Upper Esophagus, Via Natural or Artificial Opening Endoscopic, Diagnostic (ICD-10-PCS; 2021-05-23)
PROC: 0DB98ZX Excision of Duodenum, Via Natural or Artificial Opening Endoscopic, Diagnostic (ICD-10-PCS; 2021-05-23)
DX: A41.9 Sepsis, unspecified organism (principal); J96.01 Acute respiratory failure with hypoxia; F41.9 Anxiety disorder, unspecified; K21.9 Gastro-esophageal reflux disease without esophagitis; Z20.822 Contact with and (suspected) exposure to COVID-19; G47.33 Obstructive sleep apnea (adult) (pediatric); I10 Essential (primary) hypertension; Z96.642 Presence of left artificial hip joint; G89.4 Chronic pain syndrome; S74.12XA Injury of femoral nerve at hip and thigh level, left leg, initial encounter; M25.552 Pain in left hip; F32.9 Major depressive disorder, single episode, unspecified; E66.9 Obesity, unspecified; D50.9 Iron deficiency anemia, unspecified; K44.9 Diaphragmatic hernia without obstruction or gangrene; R13.10 Dysphagia, unspecified; J38.3 Other diseases of vocal cords; Z88.6 Allergy status to analgesic agent; Z68.35 Body mass index [BMI] 35.0-35.9, adult; Z88.8 Allergy status to other drugs, medicaments and biological substances; Z90.49 Acquired absence of other specified parts of digestive tract
CPT/HCPCS: 10081; 10879; 62110; 62900; 70005

== ENCOUNTER → 2021-07-16 | Outpatient (CLI) | payer BC, OTHER ==
[~2021-07-16] MED LIST changes: +AMOX TR-K CLV1 EAC4 PO; +IPRAT-ALBUT 0.5-3 ML INH; +OMEPRAZOLE 20 M20 M1 PO
== END ==
LOC: PUL 07:03
PROVIDERS: ATTEND Internal Medicine
DX: J82.81 Chronic eosinophilic pneumonia (principal); J98.4 Other disorders of lung; Z20.822 Contact with and (suspected) exposure to COVID-19; R91.8 Other nonspecific abnormal finding of lung field